=== PATIENT | born 1990 ===

== ENCOUNTER 2025-01-21 12:08 | Emergency (ER) | payer MEDICAID ==
[~2025-01-21] VITALS: Ht 182.9 cm; Wt 52.4 kg
[2025-01-21 12:58] LABS: BILIRUBIN, URINE NEGATIVE (negative); BLOOD/HGB, URINE NEGATIVE (Negative); KETONE, URINE NEGATIVE (Negative); LEUK ESTERASE, URINE NEGATIVE (negative); NITRITE, URINE NEGATIVE (negative)
[2025-01-21 13:05] LABS: BACTERIA, URINE RARE /hpf (negative); CASTS, URINE NONE SEEN \\lpf; CRYSTALS, URINE NONE SEEN (0-1+); EPITHELIAL CELLS, URINE SQUAMOUS 1+ /lpf (0-1+); RED BLOOD CELLS, URINE 0-1 /hpf (0-5)
[2025-01-21 13:06] LABS: COLLECTION TYPE, URINE CLEAN CATCH; REFLEX CULTURE, URINE No (No)
[2025-01-21 14:47] LABS: BASOPHILS 0.5 % (0-2); HEMATOCRIT 42.4 % (35.0-50.0); HEMOGLOBIN 14.5 g/dL (12.0-18.0); LYMPHOCYTES 16.5 % (24-44); MCH 30.5 (27-36); MCHC 34.2 g/dl (30-36); MCV 89.1 fl (81-99); MONOCYTES 6.3 % (0-12); NEUTROPHILS 73.7 % (39-80); PLATELET COUNT 277 K/uL (140-440); RBC 4.75 M/ul; RDW 13.5 (10.5-15.0)
[2025-01-21 14:49] LABS: N. GONORRRHOEAE BY PCR NOT DETECTED
--- OUTSIDE RECORDS SUMMARY | 2025-01-21 14:57 | XMS ---
PreManage Notification: SUSIE SORIANO Security Time Motion Analyst Events No recent Security Events currently on file CRITERIA MET - [facility] - 2 Visits in 30 Days [facility]: Unknown Himanshu has no Care Guidelines for this patient. EAlly VISIT COUNT (12 MO.) [address] [place] [address] Albina Rose TOTAL 2 NOTE: Visits indicate total known visits. ED/UCC VISIT TRACKING (12 MO.) 01/21/2025 12:10 MARY Galeana TYPE: Emergency COMPLAINT: - TESTICULAR PAIN 12/28/2024 22:50 Albina LANG TYPE: Emergency DIAGNOSES: - Acute pharyngitis, unspecified - Cannabis use, unspecified, uncomplicated - Dehydration - Transient alteration of awareness INPATIENT VISIT TRACKING (12 MO.) No inpatient visits to display in this time frame [email or web address]
[2025-01-21 15:05] LABS: ALBUMIN 3.8 g/dL (3.4-5.0); ALBUMIN/GLOBULIN RATIO 1.23 (1.1-2.4); ALKALINE PHOSPHATASE 61 U/L (46-116); ALT (SGPT) 18 U/L (14-59); ANION GAP 9.4 (7-21); AST (SGOT) 14 U/L (15-37); BILIRUBIN, TOTAL 0.8 mg/dL (0.2-1.0); BUN/CREATININE RATIO 13.04 (6.0-28.6); CALCIUM 8.6 mg/dL (8.5-10.1); CARBON DIOXIDE 29 mmol/L (21-32); CHLORIDE 105 mmol/L (98-107); CREATININE, SERUM 0.92 mg/dL (0.70-1.30); POTASSIUM 3.4 mmol/L (3.5-5.1); PROTEIN, TOTAL 6.9 g/dL (6.4-8.2); UREA NITROGEN 12 mg/dL (7-18)
[2025-01-21 15:58] VITALS: BP 113/71
== END 2025-01-21 15:58 | disposition home or self-care (01) ==
LOC: ED 12:08
PROVIDERS: Emergency Medicine
DX: N50.811 Right testicular pain (principal); R59.0 Localized enlarged lymph nodes
CPT/HCPCS: 36415; 74177; 76870; 80053; 81001; 83690; 85025; 87491; 99284-25; Q9967